=== PATIENT | female | born 2000 | race Caucasian/White ===

== ENCOUNTER 2020-01-27 09:37 | Emergency (ER) | payer OTHER, BC, SELFPAY ==
--- NOTE | ~2020-01-27 | CT_ITS ---
EXAMINATION: CT brain wo con DATE: 01/27/2020 10:11 INDICATION: Head injury, loss of consciousness. Trauma obtained down on patient's head. TECHNIQUE: Computed tomography (CT) of the head was performed without intravenous contrast. The mA wa s adjusted according to patient size. Iterative reconstruction technique was employed. Exam dose: 60 5.33 mGy-cm total exam DLP. COMPARISON: None FINDINGS: No intracranial mass lesion or hemorrhage or cerebrovascular accident is detected. There is no midline shift or mass effect. Ventricular size is within normal range. There is no subdural or ep idural hematoma. The included mastoid air cells and paranasal sinuses are normally developed and aerated. No fracture or bone destruction of the cranial vault. IMPRESSION: Negative Reviewed, dictated and finalized at [facility]. Reviewed, dictated and finalized at location B. CLEANER IMPRESSION: Negative
--- NOTE | ~2020-01-27 | CT_ITS ---
EXAMINATION: CT cervical spine wo con DATE: 01/27/2020 10:11 INDICATION: Head injury. TECHNIQUE: Computed tomography (CT) of the cervical spine was performed without intravenous contrast. Automated exposure control and iterative reconstruction technique were employed. The dose-length pro duct was 122.37 mGy-cm. COMPARISON: None FINDINGS: There is hypolordosis of cervical spine. Vertebral body heights and intervertebral disc hei ghts are normal. C1 ring is ununited posteriorly, a normal variant. At C7-T1, there is mild bilateral facet joint osteoarthritis. No neural foraminal stenosis or central canal stenosis. IMPRESSION: 1. No fracture. Reviewed, dictated and finalized at location A. UTER NUMERICAL CONTROL GRINDER IMPRESSION: 1. No fracture.
[2020-01-27 09:42] VITALS: BP 105/48; PULSE 71; RESP 18; TEMP 37.1; O2SAT 100
[2020-01-27] MEDS: ONDANSETRON HCL ODT 4 MG TABLET PO (10:16)
[2020-01-27] MEDS: KETOROLAC 30 MG/ML VIAL (*BKC) IM (11:25)
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
[2020-01-27 12:08] VITALS: BP 106/76; PULSE 66; RESP 17; O2SAT 100
== END 2020-01-27 12:10 | disposition home or self-care (01) ==
PROVIDERS: Emergency Provider Emergency Medicine
DX: S06.0X9A Concussion with loss of consciousness of unspecified duration, initial encounter (principal); W22.8XXA Striking against or struck by other objects, initial encounter
CPT/HCPCS: 70450; 72125; 96372; 99284; A9270; J1885; L0140

== ENCOUNTER 2020-04-16 20:39 | Emergency (ER) | payer BC, SELFPAY ==
[2020-04-16 20:39] VITALS: BP 119/57; PULSE 72; RESP 20; TEMP 36.1; O2SAT 100
--- NOTE | 2020-04-16 21:05 | ECG_ITS ---
Measurements Intervals [place] Rate: 58 P: 13 CA: 141 QRS: 58 QRSD: 91 T: 35 QT: 419 QTc: 412 Interpretive Statements SINUS BRADYCARDIA BORDERLINE ECG Electronically Signed On 04-17-2020 6:56:36 TILER'S ASSISTANT by Edwin Beasley D.O.
[2020-04-16 21:34] LABS: Basophils Absolute Auto 0.02 K/mm3 (0.00-0.10); Basophils Percent Auto 0.3 % (0.0-1.0); Eosinophils Absolute Auto 0.23 K/mm3 (0.02-0.50); Eosinophils Percent Auto 2.9 % (1.0-6.0); Hematocrit 37.6 % (35.0-49.0); Hemoglobin 12.3 g/dL (12.0-15.0); Immature Granulocyte Absolute 0.02 K/mm3 (0.00-0.00); Immature Granulocyte Percent A 0.3 % (0.0-0.0); Lymphocytes Absolute Auto 1.98 K/mm3 (1.10-4.50); Mean Corpuscular HGB Conc 32.7 g/dL (32.0-36.0); Mean Corpuscular Hemoglobin 29.9 pg (27.0-31.0); Mean Corpuscular Volume 91.3 fL (78.0-102.0); Mean Platelet Volume 9.4 fl (9.2-11.8); Monocytes Absolute Auto 0.62 K/mm3 (0.10-0.90); Monocytes Percent Auto 7.8 % (2.0-11.0); Neutrophils Absolute Auto 5.1 K/mm3 (1.7-7.2); Neutrophils Percent Auto 63.7 % (50.0-70.0); Platelet Count Result 244 K/mm3 (150-420); Red Blood Count 4.12 M/mm3 (4.20-5.40); Red Cell Distribution Width 12.9 % (11.6-14.4); White Blood Count 7.9 K/mm3 (4.8-10.8)
[2020-04-16 21:36] LABS: Add Urine Microscopic? NO; Appearance Urine Clear (Clear); Bilirubin Urine Negative (Negative); Blood Urine Negative (Negative); Color Urine Yellow (Yellow); Glucose Urine UA Negative (Negative); Ketones Urine Negative (Negative); Leukocyte Esterase Ur Negative (Negative); Nitrate Urine Negative (Negative); Protein Urine Negative (Negative); Urobilinogen Urine 0.2 mg/dL (0.2-1.0)
[2020-04-16 21:43] LABS: Alanine Aminotransferase 30 U/L (14-59); Albumin Level 4.2 g/dL (3.4-5.0); Alkaline Phosphatase 42 U/L (46-116); Anion Gap 8 mmol/L (8-16); Aspartate Amino Transferase 25 U/L (15-37); Bilirubin,Total 0.5 mg/dL (0.00-1.00); Blood Urea Nitrogen 18 mg/dL (7-18); Calcium 8.9 mg/dL (8.5-10.1); Carbon Dioxide 28 mmol/L (21-32); Chloride 102 mmol/L (98-108); Estimated Glomerular Filt Rate > 60; Glucose 96 mg/dL (70-99); Osmolality Calculated 287 mOsm/kg (285-295); Potassium 4.1 mmol/L (3.5-5.1); Salicylate 1.1 mg/dL (2.8-20.0); Sodium 138 mmol/L (136-145); Total Protein 7.4 g/dL (6.4-8.2)
[2020-04-16 21:43] LABS: Pregnancy On Board Control Positive; Urine Pregnancy Test Negative
[2020-04-16 21:48] LABS: Amphetamine Screen Urine Negative (Negative); Barbiturate Screen Urine Negative (Negative); Benzodiazepines Screen Urine Negative (Negative); Cannabinoid Screen Urine Positive (Negative); Cocaine Screen Urine Negative (Negative); Methadone Screen Urine Negative (Negative); Opiate Screen Urine Negative (Negative); Phencyclidine Screen Urine Negative (Negative)
[2020-04-16 21:52] LABS: Acetaminophen < 2 ug/mL (10-30)
[2020-04-16 22:13] LABS: Free T4 Free Thyroxine 1.06 ng/dL (0.76-1.46)
[2020-04-16 22:14] LABS: Ethanol < 3 mg/dL (0-6); Thyroid Stimulating Hormone 1.47 uIU/mL (0.36-3.74)
[2020-04-16 22:26] VITALS: BP 128/75; PULSE 74; RESP 20; O2SAT 97
[2020-04-16 23:22] VITALS: BP 128/75; PULSE 74; RESP 20; TEMP 36.1; O2SAT 97
[2020-04-16 23:47] VITALS: BP 127/75; PULSE 75; RESP 20; TEMP 36.9; O2SAT 94
--- NOTE | 2020-04-16 23:47 | PC.NURSE ---
GIRLFRIEND CALLED CHECKING ON PT. PT NOTIFIED.
--- NOTE | 2020-04-16 23:51 | ED.PSYCH ---
HPI - Psych General Chief Complaint: Psychiatric Symptoms Stated Complaint: unknown Time Seen by Provider: 04/16/20 20:50 Source: patient and EMS Mode of arrival: ambulatory Limitations: no limitations History of Present Illness HPI Narrative: Patient comes in after cutting herself. She has multiple superficial lacerations on her thighs and lower legs and on her left arm. She has one laceration on her left arm that is a partial thickness laceration, that is gaped open somewhat. MD complaint: feels depressed Onset (ago): hour(s) Duration: intermittent History of same: Yes Relieving factors: medication and therapy Context: significant life stressor (She says she cheated on her girlfriend and the girlfriend found out about it. ) Treatments prior to arrival: none If self harm: admits thoughts of self harm Details of plan: no plan of suicide, she just wants to hurt herself to let off stress Related Data Home Medications Medication Instructions Recorded Confirmed No Home Medications 04/16/20 04/16/20 Allergies Allergy/AdvReac Type Severity Reaction Status Date / Time No Known Allergies Allergy Verified 01/27/20 09:49 Review of Systems Constitutional: Constitutional: Reports no additional constitutional complaints Eyes: Eyes: Reports no additional eye complaints ENT: Reports system reviewed and no additional complaints, except as documented Cardiovascular: Cardiovascular: Reports no additional cardiovascular complaints Respiratory: Respiratory: Reports no additional respiratory complaints Gastrointestinal: Gastrointestinal: Reports no additional gastrointestinal complaints Genitourinary: Genitourinary: Reports no additional female genitourinary complaints Musculoskeletal: Musculoskeletal: Reports no additional musculoskeletal complaints Integumentary/Breasts: Skin/Breast: Reports system reviewed and no additional complaints, except as docu Neurologic: Reports system reviewed and no additional complaints, except as documented Psychiatric: Psychiatric: Reports no additional psychiatric complaints Endocrine: Endocrine: Reports no additional endocrine complaints Hematologic/Lymphatic: Hematologic/Lymphatic: Reports no additional hematologic/lymphatic complaints Allergic/Immunologic: Allergic/Immunologic: Reports no additional allergic/immunologic complaints FOR[facility]LY [facility], [facility] Past Medical History Medical History (Updated 04/17/20 @ 04:07 by Mir Pierson MD) Bipolar 1 disorder Surgical History Surgical History (Updated 04/17/20 @ 04:07 by Mir Pierson MD) No significant past surgical history Family History Family History (Updated 04/17/20 @ 04:10 by Mir Pierson MD) Mother Anxiety disorder Depression Father Bipolar 1 disorder Social History Social History (Updated 04/17/20 @ 04:11 by Mir Pierson MD) Alcohol intake: never Substance use: current Substance use type: marijuana Living arrangements: with family Gender identity (if verbalized by the patient): Male Sexual Orientation (if Verbalized by the Patient): Lesbian, Boucher, or Homosexual Exam Const: General: healthy appearing, no acute distress and alert Nutritional Appearance: well nourished Orientation/consciousness: patient oriented x3 Limitations: no limitations HENMT: Head: normal to inspection Ears: external ears normal and TM's normal bilaterally General nose exam: Normal external nose present Face and sinus: normal facial exam Mouth: Yes Normal oral and palatal mucosa present Throat: posterior oropharynx normal Eyes: Conjunctivae: conjunctivae normal Neck: Neck: normal visual inspection Chest: Chest palpation & inspection: normal inspection of the chest Resp: Effort & Inspection: normal respiratory effort Auscultation: clear to auscultation bilaterally Cardio: Rate: regular rate Rhythm: regular rhythm GI: GI Palp: Yes Soft to palpation (nontender) Back/Spine/Pelvis: Back: no CVA tenderness Skin:
--- NOTE | 2020-04-17 00:10 | PC.NURSE ---
PT DECLINED WOUND CLEANSING UPON ER ARRIVAL AND PRIOR TO DISCHARGE. STATED I HAVE NO ONE TO PICK ME UP. OFFERED PT TO STAY IN ER TIL RIDE FOUND.PT REFUSED. WARM BLANKET GIVEN. PT DEPARTED FACILITY GETTING INTO GREEN VEHICLE IN PARKING LOT AND DEPARTED FROM FACILITY PROPERTY.
== END 2020-04-17 00:09 | disposition home or self-care (01) ==
PROVIDERS: Emergency Provider Emergency Medicine
DX: F60.3 Borderline personality disorder (principal)
CPT/HCPCS: 36415; 80053; 80307; 81003; 81025; 84439; 84443; 85025; 93005; 99284

== ENCOUNTER 2020-09-29 09:44 | Emergency (ER) | payer BC, SELFPAY ==
[2020-09-29 09:56] VITALS: BP 131/77; PULSE 70; RESP 18; TEMP 36.5; O2SAT 100
[2020-09-29 10:24] LABS: Basophils Percent Auto 0.3 % (0.2-1.2); Eosinophils Absolute Auto 0.2 K/mm3 (0-0.3); Hematocrit 41.3 % (37.0-47.0); Hemoglobin 13.2 g/dL (12.0-15.0); Immature Granulocyte Absolute 0.01 K/mm3 (0.00-0.031); Immature Granulocyte Percent A 0.1 % (0-0.5); Lymphocytes Absolute Auto 1.67 K/mm3 (0.9-3.2); Lymphocytes Percent Auto 22.5 % (18.3-44.2); Mean Corpuscular Hemoglobin 29.4 pg (26-34); Mean Platelet Volume 9.7 fl (7.4-10.4); Monocytes Absolute Auto 0.4 K/mm3 (0.1-0.6); Monocytes Percent Auto 5.5 % (2.6-8.5); Neutrophils Absolute Auto 5.2 K/mm3 (1.3-6.7); Neutrophils Percent Auto 69.6 % (45.5-73.1); Platelet Count Result 220 k/mm3 (150-375); Red Blood Count 4.49 M/mm3 (4.2-5.4); Red Cell Distribution Width 14.5 % (11.5-14.5); White Blood Count 7.4 K/mm3 (4.5-10.0)
[2020-09-29 10:43] LABS: Alanine Aminotransferase 19 U/L (4-35); Albumin Level 4.8 g/dL (3.5-5.1); Alkaline Phosphatase 46 U/L (38-126); Anion Gap 9 mmol/L (8-16); Aspartate Amino Transferase 28 U/L (14-36); Bilirubin,Total 0.2 mg/dL (0.2-1.3); Blood Urea Nitrogen 12 mg/dL (7-17); Calcium 9.5 mg/dL (8.4-10.2); Carbon Dioxide 22 mmol/L (22-30); Chloride 104 mmol/L (98-107); Estimated CRCL calculation 91 ml/min; Estimated Glomerular Filt Rate > 60; Ethanol < 10 mg/dL (<10); Glucose 101 mg/dL (65-110); Potassium 4.2 mmol/L (3.4-5.0); Sodium 135 mmol/L (137-145)
[2020-09-29 10:52] LABS: Add Urine Microscopic? YES; Appearance Urine Clear (Clear); Bacteria Urine Trace /hpf; Bilirubin Urine Negative (Negative); Blood Urine Negative (Negative); Color Urine Yellow (Yellow); Glucose Urine UA Negative (Negative); Ketones Urine Negative (Negative); Leukocyte Esterase Ur Trace LEU/UL (Negative); Mucus Urine Rare /lpf; Nitrate Urine Negative (Negative); Protein Urine Negative (Negative); RBC Urine 0-2 /hpf (0-2); Specific Grav Ur 1.024 (1.001-1.035); Squamous Epithelial Cell Urine Many /hpf (Few); Urobilinogen Urine Negative mg/dL (<2.0); WBC Urine 0-3 /hpf
--- NOTE | 2020-09-29 11:00 | PC.NURSE ---
Assumed care of pt. at this time. Report from DOREEN Ramos
[2020-09-29 11:16] LABS: Amphetamine Screen Urine Negative (Negative); Barbiturate Screen Urine Negative (Negative); Benzodiazepines Screen Urine Negative (Negative); Cannabinoid Screen Urine Positive (Negative); Cocaine Screen Urine Negative (Negative); Methadone Screen Urine Negative (Negative); Opiate Screen Urine Negative (Negative); Phencyclidine Screen Urine Negative (Negative)
--- NOTE | 2020-09-29 11:20 | PC.NURSE ---
This RN into pts room. Talking with pt in regards to self harm, suicide thoughts and family support. Pt states that when she was on her medication she felt like she could handle things better . Pt states that without her medication she will say things like she wants to kill herself, but as soon as she says these things she immediately regrets it. Pt states that last time she tried to harm herself was June 07 of this year. Pt denies any thoughts of harming herself or others within the past month. Pt states she feels as though she has a good support system at home.
--- NOTE | 2020-09-29 11:28 | ED.PSYCH ---
HPI - Psych General Chief Complaint: Psychiatric Symptoms Stated Complaint: Depression Time Seen by Provider: 09/29/20 10:43 Source: patient Mode of arrival: ambulatory Limitations: no limitations History of Present Illness HPI Narrative: This is a 20-year-old female that presents to the emergency department for suicidal ideations. Brought in with the police department. She is having difficulties in her personal relationship with her fianc?. She texted her fianc? and told her she was going to kill herself with a gun. Reports she has history of borderline personality disorder. She has been out of her medication for this for a couple of months. She is still currently seeing a counselor. Reports she has not been able to get the blood work required by her psychiatrist to get more of her medication. Reports she feels very unstable when she is not on her medicine. She has been hospitalized at a psychiatric facility and has previous suicide attempt by cutting. Patient does have her mother around whom she is very close with. She has no plan currently to harm herself. She said she said that to her fiance so she would be hurting as well. Denies visual or auditory hallucinations, or homicidal ideations. Related Data Home Medications Medication Instructions Recorded Confirmed oxcarbazepine 09/29/20 trazodone 09/29/20 Allergies Allergy/AdvReac Type Severity Reaction Status Date / Time No Known Allergies Allergy Verified 01/27/20 09:49 Review of Systems Review of Systems: PSYCHIATRIC: Reports depression. All systems reviewed & are unremarkable except as noted in HPI and below PMFSH Past Medical History Medical History (Updated 09/29/20 @ 15:25 by Ade Borjas PA-C) Bipolar 1 disorder History of borderline personality disorder Surgical History Surgical History (Updated 04/17/20 @ 04:07 by Mir Pierson MD) No significant past surgical history Family History Family History (Updated 04/17/20 @ 04:10 by Mir Pierson MD) Mother Anxiety disorder Depression Father Bipolar 1 disorder Social History Social History (Updated 09/29/20 @ 11:31 by Ade Borjas PA-C) Smoking status: Never smoker Alcohol intake: current Substance use: current Substance use type: marijuana Gender identity (if verbalized by the patient): Male Exam Narrative: GENERAL: Well-appearing, well-nourished, and in no acute distress. HEAD: Normocephalic, atraumatic. EYES: EOMI. EXTREMITIES: Normal range of motion. No edema. SKIN: Warm, dry, no rash. NEURO: No focal deficits. Alert and oriented x3. PSYCH: Depressed mood and affect. Patient appears to have good insight Course Vital Signs Vital signs: Vital Signs Temperature 97.7 F 09/29/20 09:56 Pulse Rate 70 09/29/20 09:56 Respiratory Rate 18 09/29/20 09:56 Blood Pressure 131/77 09/29/20 09:56 Pulse Oximetry 100 09/29/20 09:56 Temperature 98.1 F 09/29/20 12:15 Pulse Rate 66 09/29/20 12:15 Respiratory Rate 22 H 09/29/20 12:15 Blood Pressure 107/65 09/29/20 12:15 Pulse Oximetry 100 09/29/20 12:15 MDM - Psych MDM Narrative Medical decision making narrative: Patient presents to the emergency department for suicidal ideations. She had texted her fianc? saying she was going to shoot herself. Patient herself reports she has no access to a firearm. Reports she sent the text as a way to make her fianc? hurt as she was hurting. She does not have an active plan to harm herself. Patient was evaluated by [facility] and a safety plan is in place. She does have a counselor that she is seeing currently. She does have a good support system. Mother is in the room with her currently who feels good with safety plan and discharge home. She was given warnings to return to the ER Lab Data Attestation: I reviewed the patient's lab results. Result diagrams: 09/29/20 10:17 09/29/20 10:17 Labs: Lab Results
--- NOTE | 2020-09-29 11:59 | PC.NURSE ---
Pt. Is medically cleared
[2020-09-29 12:15] VITALS: BP 107/65; PULSE 66; RESP 22; TEMP 36.7; O2SAT 100
--- NOTE | 2020-09-29 14:38 | PC.NURSE ---
Zoila from [facility] states she feels that a safety plan is appropriate for this patient. ERP made aware
[2020-09-29 15:15] VITALS: BP 112/78; PULSE 71; RESP 20; O2SAT 98
== END 2020-09-29 15:15 | disposition home or self-care (01) ==
PROVIDERS: Emergency Provider Emergency Medicine
DX: R45.851 Suicidal ideations (principal); F31.9 Bipolar disorder, unspecified; F60.3 Borderline personality disorder
CPT/HCPCS: 36415; 80053; 80307; 81001; 81025; 84443; 85025; 99284

== ENCOUNTER 2021-08-10 14:29 | Emergency (ER) | payer BC, SELFPAY ==
--- NOTE | ~2021-08-10 | XR_ITS ---
EXAMINATION: XR shoulder LT min 2V INDICATION: Left shoulder pain TECHNIQUE: Four views of the left shoulder are submitted. COMPARISON: None FINDINGS: Normal alignment. No fracture. Glenohumeral and acromioclavicular joint spaces are normal. Soft tissues are unremarkable. IMPRESSION: 1. No acute osseous abnormality. Reviewed, dictated and finalized at location F.
[2021-08-10 14:37] VITALS: BP 111/57; PULSE 76; RESP 16; TEMP 37.2; O2SAT 100
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
== END 2021-08-10 15:39 | disposition home or self-care (01) ==
PROVIDERS: Emergency Provider Registered Nurse
DX: M25.512 Pain in left shoulder (principal); F17.290 Nicotine dependence, other tobacco product, uncomplicated
CPT/HCPCS: 73030; 99213; G0463

== ENCOUNTER 2023-06-28 18:47 | Emergency (ER) | payer BC, SELFPAY ==
--- NOTE | ~2023-06-28 | XR_ITS ---
EXAM: XR hand LT min 3V DATE: 06/28/2023 19:53 HISTORY: Laceration to 3rd and 4th from knife, left hand . COMPARISON: None available. FINDINGS: Normal mineralization. No fracture or dislocation. No lytic or blastic lesion. Joint space s are maintained. No erosion or periosteal change. Lacerations over the medial aspect of the left thi rd and fourth digits. IMPRESSION: No acute osseous finding in the left hand. Reviewed, dictated and finalized at location K.
[2023-06-28 18:50] VITALS: BP 123/76; PULSE 100; RESP 16; TEMP 36.8; O2SAT 100
--- NOTE | 2023-06-28 19:34 | ED.GENADULT ---
HPI - General Adult General Chief complaint: Wound/Laceration Stated complaint: hand lac Time Seen by Provider: 06/28/23 19:29 History of Present Illness HPI narrative: Patient is a 23-year-old female who presents to the emergency department this evening secondary to left finger laceration. Patient states that she was cutting meat with a knife and accidentally cut the palmar aspect of her 3rd and 4th finger. No active bleeding. Patient states that she rinsed out her multiple times at home and admits that initially wound was bleeding but did eventually stop bleeding. Patient is unsure when her last tetanus shot was and believes that she is not currently up-to-date. She admits to mild numbness and tingling to left 3rd and 4th digits, however, intact digit flexion and extension. Patient denies any additional symptoms or injuries at this time. Related Data Allergies Allergy/AdvReac Type Severity Reaction Status Date / Time No Known Allergies Allergy Verified 06/28/23 19:02 Review of Systems Review of Systems: All systems are reviewed and are negative unless stated otherwise in the HPI. [facility] Past Medical History Medical History Bipolar 1 disorder History of borderline personality disorder Surgical History Surgical History No significant past surgical history Family History Family History Mother Anxiety disorder Depression Father Bipolar 1 disorder Social History Social History Smoking status: Current every day smoker Tobacco type: e-cigarettes/vaping Alcohol intake: current Substance use: current Substance use type: marijuana Living arrangements: with family Gender identity (if verbalized by the patient): Male Sexual Orientation (if Verbalized by the Patient): Lesbian, Boucher, or Homosexual Exam Narrative: General: Alert, awake, afebrile, in no acute distress. Cardiovascular: Regular rate and rhythm, no murmurs, rubs or gallops, no peripheral edema. Respiratory: Clear to auscultation bilaterally, no tachypnea, no wheezing, no rhonchi, no rubs, no respiratory distress. Abdomen: Soft, nontender, nondistended, no rebound, no guarding, no peritoneal signs. Musculoskeletal: 2 cm laceration to the palmar aspect of the left middle finger and 2.5 cm laceration to the distal palmar aspect of the left 4th digit, intact flexion and extension against resistance at the PIP and PIP joints of both 3rd and 4th digits of the left hand, intact sensation, patient is neurovascularly intact. Skin: No rashes or petechia, no signs of infection. Psychiatric: Alert and oriented, normal behavior and judgment for situation. Neurological: Alert and oriented to person, place, and time. Follows all commands. No focal deficits, speech is clear and fluent. Course Vital Signs Vital signs: Vital Signs Temperature 98.2 F 06/28/23 18:50 Pulse Rate 100 06/28/23 18:50 Respiratory Rate 16 06/28/23 18:50 Blood Pressure 123/76 06/28/23 18:50 Pulse Oximetry 100 06/28/23 18:50 Temperature 98.2 F 06/28/23 18:50 Pulse Rate 100 06/28/23 18:50 Respiratory Rate 16 06/28/23 18:50 Blood Pressure 123/76 06/28/23 18:50 Pulse Oximetry 100 06/28/23 18:50 Procedures Laceration Laceration 1: Date: 06/28/23 Time: 20:50 Site: hand Side (If applicable): left Size (cm): 2.5 Description: linear Depth: simple, single layer Local Anesthetic: lidocaine 1% Amount of anesthesia used (mL): 3 Pre-repair: wound explored, irrigated, deep structures intact and wound margins revised ====== Skin Level ====== Skin layer closed with: nylon Size (cm): 4-0 Number of sutures: 5 Technique: simple, inter
[2023-06-28] MEDS: TETANUS,DIPHTHERIA,AC PERTUSSIS ADULT (0.5 ML) BOOSTRIX IM (19:49)
== END 2023-06-28 20:55 | disposition home or self-care (01) ==
PROVIDERS: Emergency Provider Emergency Medicine
DX: S61.213A Laceration without foreign body of left middle finger without damage to nail, initial encounter (principal); S61.215A Laceration without foreign body of left ring finger without damage to nail, initial encounter; W26.0XXA Contact with knife, initial encounter; Z23 Encounter for immunization; F31.9 Bipolar disorder, unspecified; Z72.0 Tobacco use
CPT/HCPCS: 12002; 73130; 90471; 90715; 99283

== ENCOUNTER 2024-10-25 21:23 | Emergency (ER) | payer SELFPAY ==
--- NOTE | ~2024-10-25 | XR_ITS ---
X-rays left forearm Indication: Laceration Comparison: Laceration Technique: 2 views left forearm Findings/Impression: 1. No radiopaque foreign body. 2. No bony abnormality. 3. Soft tissue wound distal ventral soft tissues. Reviewed, dictated and finalized at location R.
--- NOTE | 2024-10-25 21:28 | ED_ITS ---
HPI - Wound/Laceration General Chief Complaint: Wound/Laceration <Jocelynn Herrera APRN - Last Filed: 10/26/24 03:05> Stated Complaint: lac to left arm, self harm <Jocelynn Herrera APRN - Last Filed: 10/26/24 03:05> Time Seen by Provider: 10/26/24 05:05 <Jocelynn Herrera APRN - Last Filed: 10/26/24 03:05> History of Present Illness HPI narrative: Patient is a 24-year-old transgender male who reports to the ER following a self-inflicted laceration to his left forearm. He reports he was feeling down approximately 30 minutes ago so he took a kitchen knife and sliced his arm. Patient reports he is not feeling suicidal or homicidal. He reports he has a history of anxiety, depression, ADHD, and borderline personality disorder. Patient reports he is medicated for these conditions and has felt relatively stable on them until today. He also endorses drinking alcohol prior to his arrival. Patient denies any chest pain, shortness of breath, recent fevers, or other signs/symptoms of illness. <Jocelynn Herrera APRN - Last Filed: 10/26/24 03:05> Related Data Allergies/Adverse Reactions: Allergies Allergy/AdvReac Type Severity Reaction Status Date / Time No Known Allergies Allergy Verified 06/28/23 19:02 <Jocelynn Herrera APRN - Last Filed: 10/26/24 03:05> Review of Systems 2 Review of Systems: All systems reviewed & are unremarkable except as noted in HPI and below <Jocelynn Herrera APRN - Last Filed: 10/26/24 03:05> [facility] Past Medical History Medical History: Medical History History of borderline personality disorder Bipolar 1 disorder <Jocelynn Herrera APRN - Last Filed: 10/26/24 03:05> Surgical History Surgical History: Surgical History No significant past surgical history <Jocelynn Herrera APRN - Last Filed: 10/26/24 03:05> Family History Family History: Family History Mother Anxiety disorder Depression Father Bipolar 1 disorder <Jocelynn Herrera APRN - Last Filed: 10/26/24 03:05> Social History Social History: Social History Smoking status: Current every day smoker Tobacco type: e-cigarettes/vaping Alcohol intake: current Substance use: current Substance use type: marijuana Living arrangements: with family Gender identity (if verbalized by the patient): Male Sexual Orientation (if Verbalized by the Patient): Lesbian, Boucher, or Homosexual <Jocelynn Herrera APRN - Last Filed: 10/26/24 03:05> Exam 2 Narrative: GENERAL: Well appearing, well-nourished, non-toxic, in no acute distress. HEAD: Normocephalic, atraumatic. NECK: Supple. No adenopathy, no masses. RESPIRATORY: Airway patent, respirations nonlabored. Clear to auscultation bilaterally, no rales, rhonchi, wheezing. CARDIOVASCULAR: Regular rate and rhythm without murmurs, rubs, or gallops. Peripheral pulses 2+ and equal bilaterally. ABDOMINAL: Soft, nontender, nondistended, no hepatosplenomegaly. Normoactive BS. MUSCULOSKELETAL: Moves all extremities. Strength/ROM intact without gross deformities. SKIN: Warm, dry, normal color. No rashes. L forearm laceration approximately 2- 1/2 inches horizontal. Bleeding controlled but intermittently oozing. No tendon involvement. NEURO: A&O X3. Speech clear. Cranial nerves II-XII intact. No ataxic movements. PSYCHIATRIC: Tearful. Screaming and arguing with staff intermittently. <Jocelynn Herrera APRN - Last Filed: 10/26/24 03:05> Course RECORDS ASSISTANT/PA Physician Supervision This visit was performed by both a physician and an APC. I performed all aspects of the MDM as documented. <Vishnu Campa MD - Last Filed: 10/26/24 20:28> Vital Signs Vital signs: Vital Signs Temperature 97.1 F L 10/25/24 21:33 Pulse Rate 74 10/25/24 21:33 Respiratory Rate 18 10/25/24 21:33 Blood Pressure 105/57 L 10/25/24 21:33 Pulse Oximetry 97 10/25/24 21:33 Oxygen Delivery Room Air 10/25/24 21:33 Temperature 98 F 10/26/24 20:00 Pulse Rate 76 10/26/24 20:00 Respiratory Rate 16 10/26/24 20:00 Blood Pressure 128/67 10/26/24 20:00 Pulse Oximetry 100 10/26/24 20:00 Oxygen Delivery Room Air 10/25/24 21:33 <Jocelynn Herrera APRN - Last Filed: 10/26/24 03:05> Vital Signs Temperature 97.1 F L 10/25/24 21:33 Pulse Rate 74 10/25/24 21:33 Respiratory Rate 18 10/25/24 21:33 Blood Pressure 105/57 L 10/25/24 21:33 Pulse Oximetry 97 10/25/24 21:33 Oxygen Delivery Room Air 10/25/24 21:33 Temperature 98 F 10/26/24 20:00 Pulse Rate 76 10/26/24 20:00 Respiratory Rate 16 10/26/24 20:00 Blood Pressure 128/67 10/26/24 20:00 Pulse Oximetry 100 10/26/24 20:00 Oxygen Delivery Room Air 10/25/24 21:33 <Vishnu Campa MD - Last Filed: 10/26/24 20:28> Procedures Laceration Laceration 1: Date: 10/26/24 <Jocelynn Herrera APRN - Last Filed: 10/26/24 03:05> Time: 01:02 <Jocelynn Herrera APRN - Last Filed: 10/26/24 03:05> Site: upper extremity <Jocelynn Herrera APRN - Last Filed: 10/26/24 03:05> Side (If applicable): left <Jocelynn Herrera APRN - Last Filed: 10/26/24 03:05> Size (cm): 7 <Jocelynn Herrera APRN - Last Filed: 10/26/24 03:05> Description: linear and irregular <Jocelynn Herrera APRN - Last Filed: 10/26/24 03:05> Depth: simple, single layer <Jocelynn Fabio Herrera WEB SERVICES DEVELOPER - Last Filed: 10/26/24 03:05> Local Anesthetic: lidocaine 1% and with epi <Jocelynn Fabio Herrera WEB SERVICES DEVELOPER - Last Filed: 10/26/24 03:05> Amount of anesthesia used (mL): 7 <Jocelynn LPuja Herrera WEB SERVICES DEVELOPER - Last Filed: 10/26/24 03:05> Pre-repair: wound explored and irrigated extensively <Jocelynn LPuja Herrera, WEB SERVICES DEVELOPER - Last Filed: 10/26/24 03:05> ====== Skin Level ======: Skin layer closed with: nylon <Jocelynn Herrera WEB SERVICES DEVELOPER - Last Filed: 10/26/24 03:05> Size (cm): 3-0 <Jocelynn LPuja Herrera WEB SERVICES DEVELOPER - Last Filed: 10/26/24 03:05> Number of sutures: 7 <Jocelynn Herrera WEB SERVICES DEVELOPER - Last Filed: 10/26/24 03:05> Technique: simple, interrupted <Jocelynn Herrera WEB SERVICES DEVELOPER - Last Filed: 10/26/24 03:05> ====== Subcutaneous Layer ======: Subcutaneous layer closed with: chromic gut <Jocelynn Herrera WEB SERVICES DEVELOPER - Last Filed: 10/26/24 03:05> Size: 3-0 <Jocelynnalexa Herrera WEB SERVICES DEVELOPER - Last Filed: 10/26/24 03:05> ====== Muscle Layer ======: ====== Tendon Layer ======: MDM - Wound/Laceration MDM Narrative Medical decision making narrative: Patient is a 24-year-old transgender male who reports to the ER following a self-inflicted laceration to his left forearm. He reports he was feeling down approximately 30 minutes ago so he took a kitchen knife and sliced his arm. Patient reports he is not feeling suicidal or homicidal. He reports he has a history of anxiety, depression, ADHD, and borderline personality disorder. Patient reports he is medicated for these conditions and has felt relatively stable on them until today. He also endorses drinking alcohol prior to his arrival. Patient denies any chest pain, shortness of breath, recent fevers, or other signs/symptoms of illness. He reports his last tetanus shot was within the past year, as he cut his fingers with a kitchen knife. Labs Ordered: CBC, CMP, UDS, ethanol, TSH, UA Imaging Ordered: Left forearm x-ray Medications Ordered: Haldol 5 mg IM, Benadryl 50 mg IV, Valium 5 mg IV, lidocaine with epinephrine infiltrate Results: Patient's CBC and CMP are unremarkable. His TSH is 2.69. Patient's urinalysis is unremarkable. His UDS is positive for cannabinoids. Patient's initial ethanol level was 188. His 2nd ethanol level drawn several hours later was 83. No other visible injuries besides L forearm laceration. Patient's tetanus status up-to-date. He started becoming agitated, which caused him to flail his arms around. Pt's site started active bleeding so pressure was applied and a new dressing was placed up the laceration. He was given sedative medications. Upon re-examination, pt was very drowsy but became mildly agitated when aroused for laceration repair. Staff able to de-escalate pt with compromise of bringing his fiance back to his room during the procedure. Pt settled in nicely and acted appropriately throughout laceration repair. Lidocaine with epi was used with adequate anesthesia. Laceration was repaired with 7 sutures without complications. Site covered with antibiotic cream and dress with a nonadherent dressing. 0230- Pt medically cleared for psychiatric intake. 0300- Care signed out to Dr. Campa pending psychiatric intake evaluation. < Jocelynn Herrera APRN - Last Filed: 10/26/24 03:05> Lab Data Attestation: I reviewed the patient's lab results. <Jocelynn Herrera APRN - Last Filed: 10/26/24 03:05> Result diagrams: 10/25/24 21:50 10/25/24 21:50 <Jocelynn Herrera APRN - Last Filed: 10/26/24 03:05> Labs: Lab Results 10/25/24 10/25/24 10/26/24 Range/Units 21:50 21:54 01:59 WBC 7.4 (4.5-10.0) K/mm3 RBC 4.33 (4.2-5.4) M/mm3 Hgb 12.3 (12.0-15.0) g/dL Hct 38.2 (37.0-47.0) % MCV 88.2 (80-100) fl MCH 28.4 (26-34) pg MCHC 32.2 (32-36) g/dl RDW 13.3 (11.5-14.5) % Plt Count 237 (150-375) k/mm3 MPV 9.3 (7.4-10.4) fl Immature Gran % (Auto) 0.3 (0-0.5) % Neut % (Auto) 62.3 (45.5-73.1) % Lymph % (Auto) 30.5 (18.3-44.2) % [place] % (Auto) 6.0 (2.6-8.5) % Eos % (Auto) 0.8 (0-4.4) % Baso % (Auto) 0.1 L (0.2-1.2) % Lymph # (Auto) 2.27 (0.9-3.2) K/mm3 [place] # (Auto) 0.5 (0.1-0.6) K/mm3 Eos # (Auto) 0.1 (0-0.3) K/mm3 Baso # (Auto) 0.0 (0.0-0.1) K/mm3 Abs Immat Gran (auto) 0.02 (0.00-0.031) K/mm3 Absolute Neuts (auto) 4.6 (1.3-6.7) K/mm3 Absolute Nucleated RBC 0.000 (0.0-0.012) K/mm3 Nucleated RBC % 0.0 (0.0-0.2) % Sodium 138 (137-145) mmol/L Potassium 3.4 (3.4-5.0) mmol/L Chloride 106 (98-107) mmol/L Carbon Dioxide 23 (22-30) mmol/L Anion Gap 9 (4-12) mmol/L BUN 13 (7-17) mg/dL Creatinine 0.88 (0.7-1.0) mg/dL Estim Creat Clear Calc Not Reportable Estimated GFR > 60 (59 - ) Glucose 103 (65-110) mg/dL Calcium 9.0 (8.4-10.2) mg/dL Total Bilirubin 0.4 (0.2-1.3) mg/dL AST 31 (14-36) U/L ALT 15 (6-35) U/L Alkaline Phosphatase 50 (38-126) U/L Total Protein 7.3 (6.3-8.2) g/dL Albumin 4.5 (3.5-5.1) g/dL TSH 2.690 (0.465-4.680) uIU/mL Urine Color Yellow (Yellow) Urine Appearance Clear (Clear) Urine pH 6.5 (5.0-9.0) Ur Specific [place] 1.004 (1.001-1.035) Urine Protein Negative (Negative) mg/dL Urine Glucose (UA) Negative (Negative) mg/dL Urine Ketones Negative (Negative) mg/dL Ur Blood (Man) Negative (Negative) Urine Nitrate Negative (Negative) Urine Bilirubin Negative (Negative) Urine Urobilinogen 0.2 (<2.0) mg/dL Leukocyte Esterase Rfl Negative (Negative) EASTON/UL POC Urine HCG, Qual Negative (Negative) Urine Opiates Screen Negative (Negative) Urine Methadone Screen Negative (Negative) Ur Barbiturates Screen Negative (Negative) Ur Phencyclidine Scrn Negative (Negative) Ur Amphetamine Screen Negative (Negative) U Benzodiazepines Scrn Negative (Negative) Urine Cocaine Screen Negative (Negative) U Cannabinoids Screen Positive A (Negative) Ethyl Alcohol 188 83 (<10) mg/dL 10/26/24 Range/Units 03:35 WBC (4.5-10.0) K/mm3 RBC (4.2-5.4) M/mm3 Hgb (12.0-15.0) g/dL Hct (37.0-47.0) % MCV (80-100) fl MCH (26-34) pg MCHC (32-36) g/dl RDW (11.5-14.5) % Plt Count (150-375) k/mm3 MPV (7.4-10.4) fl Immature Gran % (Auto) (0-0.5) % Neut % (Auto) (45.5-73.1) % Lymph % (Auto) (18.3-44.2) % [place] % (Auto) (2.6-8.5) % Eos % (Auto) (0-4.4) % Baso % (Auto) (0.2-1.2) % Lymph # (Auto) (0.9-3.2) K/mm3 [place] # (Auto) (0.1-0.6) K/mm3 Eos # (Auto) (0-0.3) K/mm3 Baso # (Auto) (0.0-0.1) K/mm3 Abs Immat Gran (auto) (0.00-0.031) K/mm3 Absolute Neuts (auto) (1.3-6.7) K/mm3 Absolute Nucleated RBC (0.0-0.012) K/mm3 Nucleated RBC % (0.0-0.2) % Sodium (137-145) mmol/L Potassium (3.4-5.0) mmol/L Chloride (98-107) mmol/L Carbon Dioxide (22-30) mmol/L Anion Gap (4-12) mmol/L BUN (7-17) mg/dL Creatinine (0.7-1.0) mg/dL Estim Creat Clear Calc Estimated GFR (59 - ) Glucose (65-110) mg/dL Calcium (8.4-10.2) mg/dL Total Bilirubin (0.2-1.3) mg/dL AST (14-36) U/L ALT (6-35) U/L Alkaline Phosphatase (38-126) U/L Total Protein (6.3-8.2) g/dL Albumin (3.5-5.1) g/dL TSH (0.465-4.680) uIU/mL Urine Color (Yellow) Urine Appearance (Clear) Urine pH (5.0-9.0) Ur Specific [place] (1.001-1.035) Urine Protein (Negative) mg/dL Urine Glucose (UA) (Negative) mg/dL Urine Ketones (Negative) mg/dL Ur Blood (Man) (Negative) Urine Nitrate (Negative) Urine Bilirubin (Negative) Urine Urobilinogen (<2.0) mg/dL Leukocyte Esterase Rfl (Negative) EASTON/UL POC Urine HCG, Qual (Negative) Urine Opiates Screen (Negative) Urine Methadone Screen (Negative) Ur Barbiturates Screen (Negative) Ur Phencyclidine Scrn (Negative) Ur Amphetamine Screen (Negative) U Benzodiazepines Scrn (Negative) Urine Cocaine Screen (Negative) U Cannabinoids Screen (Negative) Ethyl Alcohol 57 (<10) mg/dL <Jocelynn Fabio Herrera, WEB SERVICES DEVELOPER - Last Filed: 10/26/24 03:05> Lab Results 10/25/24 10/25/24 10/26/24 Range/Units 21:50 21:54 01:59 WBC 7.4 (4.5-10.0) K/mm3 RBC 4.33 (4.2-5.4) M/mm3 Hgb 12.3 (12.0-15.0) g/dL Hct 38.2 (37.0-47.0) % MCV 88.2 (80-100) fl MCH 28.4 (26-34) pg MCHC 32.2 (32-36) g/dl RDW 13.3 (11.5-14.5) % Plt Count 237 (150-375) k/mm3 MPV 9.3 (7.4-10.4) fl Immature Gran % (Auto) 0.3 (0-0.5) % Neut % (Auto) 62.3 (45.5-73.1) % Lymph % (Auto) 30.5 (18.3-44.2) % [place] % (Auto) 6.0 (2.6-8.5) % Eos % (Auto) 0.8 (0-4.4) % Baso % (Auto) 0.1 L (0.2-1.2) % Lymph # (Auto) 2.27 (0.9-3.2) K/mm3 [place] # (Auto) 0.5 (0.1-0.6) K/mm3 Eos # (Auto) 0.1 (0-0.3) K/mm3 Baso # (Auto) 0.0 (0.0-0.1) K/mm3 Abs Immat Gran (auto) 0.02 (0.00-0.031) K/mm3 Absolute Neuts (auto) 4.6 (1.3-6.7) K/mm3 Absolute Nucleated RBC 0.000 (0.0-0.012) K/mm3 Nucleated RBC % 0.0 (0.0-0.2) % Sodium 138 (137-145) mmol/L Potassium 3.4 (3.4-5.0) mmol/L Chloride 106 (98-107) mmol/L Carbon Dioxide 23 (22-30) mmol/L Anion Gap 9 (4-12) mmol/L BUN 13 (7-17) mg/dL Creatinine 0.88 (0.7-1.0) mg/dL Estim Creat Clear Calc Not Reportable Estimated GFR > 60 (59 - ) Glucose 103 (65-110) mg/dL Calcium 9.0 (8.4-10.2) mg/dL Total Bilirubin 0.4 (0.2-1.3) mg/dL AST 31 (14-36) U/L ALT 15 (6-35) U/L Alkaline Phosphatase 50 (38-126) U/L Total Protein 7.3 (6.3-8.2) g/dL Albumin 4.5 (3.5-5.1) g/dL TSH 2.690 (0.465-4.680) uIU/mL Urine Color Yellow (Yellow) Urine Appearance Clear (Clear) Urine pH 6.5 (5.0-9.0) Ur Specific [place] 1.004 (1.001-1.035) Urine Protein Negative (Negative) mg/dL Urine Glucose (UA) Negative (Negative) mg/dL Urine Ketones Negative (Negative) mg/dL Ur Blood (Man) Negative (Negative) Urine Nitrate Negative (Negative) Urine Bilirubin Negative (Negative) Urine Urobilinogen 0.2 (<2.0) mg/dL Leukocyte Esterase Rfl Negative (Negative) EASTON/UL POC Urine HCG, Qual Negative (Negative) Urine Opiates Screen Negative (Negative) Urine Methadone Screen Negative (Negative) Ur Barbiturates Screen Negative (Negative) Ur Phencyclidine Scrn Negative (Negative) Ur Amphetamine Screen Negative (Negative) U Benzodiazepines Scrn Negative (Negative) Urine Cocaine Screen Negative (Negative) U Cannabinoids Screen Positive A (Negative) Ethyl Alcohol 188 83 (<10) mg/dL 10/26/24 Range/Units 03:35 WBC (4.5-10.0) K/mm3 RBC (4.2-5.4) M/mm3 Hgb (12.0-15.0) g/dL Hct (37.0-47.0) % MCV (80-100) fl MCH (26-34) pg MCHC (32-36) g/dl RDW (11.5-14.5) % Plt Count (150-375) k/mm3 MPV (7.4-10.4) fl Immature Gran % (Auto) (0-0.5) % Neut % (Auto) (45.5-73.1) % Lymph % (Auto) (18.3-44.2) % [place] % (Auto) (2.6-8.5) % Eos % (Auto) (0-4.4) % Baso % (Auto) (0.2-1.2) % Lymph # (Auto) (0.9-3.2) K/mm3 [place] # (Auto) (0.1-0.6) K/mm3 Eos # (Auto) (0-0.3) K/mm3 Baso # (Auto) (0.0-0.1) K/mm3 Abs Immat Gran (auto) (0.00-0.031) K/mm3 Absolute Neuts (auto) (1.3-6.7) K/mm3 Absolute Nucleated RBC (0.0-0.012) K/mm3 Nucleated RBC % (0.0-0.2) % Sodium (137-145) mmol/L Potassium (3.4-5.0) mmol/L Chloride (98-107) mmol/L Carbon Dioxide (22-30) mmol/L Anion Gap (4-12) mmol/L BUN (7-17) mg/dL Creatinine (0.7-1.0) mg/dL Estim Creat Clear Calc Estimated GFR (59 - ) Glucose (65-110) mg/dL Calcium (8.4-10.2) mg/dL Total Bilirubin (0.2-1.3) mg/dL AST (14-36) U/L ALT (6-35) U/L Alkaline Phosphatase (38-126) U/L Total Protein (6.3-8.2) g/dL Albumin (3.5-5.1) g/dL TSH (0.465-4.680) uIU/mL Urine Color (Yellow) Urine Appearance (Clear) Urine pH (5.0-9.0) Ur Specific [place] (1.001-1.035) Urine Protein (Negative) mg/dL Urine Glucose (UA) (Negative) mg/dL Urine Ketones (Negative) mg/dL Ur Blood (Man) (Negative) Urine Nitrate (Negative) Urine Bilirubin (Negative) Urine Urobilinogen (<2.0) mg/dL Leukocyte Esterase Rfl (Negative) EASTON/UL POC Urine HCG, Qual (Negative) Urine Opiates Screen (Negative) Urine Methadone Screen (Negative) Ur Barbiturates Screen (Negative) Ur Phencyclidine Scrn (Negative) Ur Amphetamine Screen (Negative) U Benzodiazepines Scrn (Negative) Urine Cocaine Screen (Negative) U Cannabinoids Screen (Negative) Ethyl Alcohol 57 (<10) mg/dL <Vishnu Campa MD - Last Filed: 10/26/24 20:28> Medical Decision Making MDM Documentation: Patient signed out to me pending repeat alcohol and psychiatric evaluation. Patient evaluated and recommended inpatient. Involuntary paperwork signed. PAtient remains pending placement. <Vishnu Campa MD - Last Filed: 10/26/24 20:28> Discharge Plan Discharge Clinical Impression: Laceration, Intentional self-harm, Suicidal behavior with attempted self- injury <Jocelynn Herrera APRN - Last Filed: 10/26/24 03:05> Patient Disposition: Still a Patient <Jocelynn Herrera APRN - Last Filed: 10/26/24 03:05> Condition: Stable <Jocelynn Herrera APRN - Last Filed: 10/26/24 03:05> Patient Language: Citizen Of [place] <Jocelynn Herrera APRN - Last Filed: 10/26/24 03:05> Prescriptions: No Action methocarbamol 750 mg tablet 750 mg PO TID Qty: 20 0RF Rx Instructions: can't drive or operate machinery while taking prednisone 10 mg tablet 10 mg PO BID Qty: 10 0RF <CASEY Roca Last Filed: 10/26/24 03:05> Follow-up/Referrals: UNKNOWN,DOCTOR [Primary Care Provider] <CASEY Roca Last Filed: 10/26/24 03:05>
[2024-10-25 21:33] VITALS: BP 105/57; PULSE 74; RESP 18; TEMP 36.2; O2SAT 97
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
[2024-10-25 21:55] LABS: BEDSIDEPREGUCG Negative (Negative)
[2024-10-25 21:59] LABS: Hematocrit 38.2 % (37.0-47.0); Hemoglobin 12.3 g/dL (12.0-15.0); Immature Granulocyte Percent A 0.3 % (0-0.5); Lymphocytes Absolute Auto 2.27 K/mm3 (0.9-3.2); Mean Corpuscular HGB Conc 32.2 g/dl (32-36); Mean Corpuscular Hemoglobin 28.4 pg (26-34); Mean Corpuscular Volume 88.2 fl (80-100); Nucleated Red Blood Cells Absolute Auto 0.000 K/mm3 (0.0-0.012); Nucleated Red Blood Cells Perc 0.0 % (0.0-0.2); Platelet Count Result 237 k/mm3 (150-375); Red Blood Count 4.33 M/mm3 (4.2-5.4); White Blood Count 7.4 K/mm3 (4.5-10.0)
[2024-10-25 22:01] LABS: Add Urine Microscopic? NO; Appearance Urine Clear (Clear); Glucose Urine UA Negative (Negative); Leukocyte Esterase Ur Negative LEU/UL (Negative); Nitrate Urine Negative (Negative); Specific Grav Ur 1.004 (1.001-1.035)
[2024-10-25 22:10] LABS: Alanine Aminotransferase 15 U/L (6-35); Albumin Level 4.5 g/dL (3.5-5.1); Alkaline Phosphatase 50 U/L (38-126); Anion Gap 9 mmol/L (4-12); Aspartate Amino Transferase 31 U/L (14-36); Bilirubin,Total 0.4 mg/dL (0.2-1.3); Blood Urea Nitrogen 13 mg/dL (7-17); Calcium 9.0 mg/dL (8.4-10.2); Carbon Dioxide 23 mmol/L (22-30); Chloride 106 mmol/L (98-107); Estimated Glomerular Filt Rate > 60; Glucose 103 mg/dL (65-110); Potassium 3.4 mmol/L (3.4-5.0); Sodium 138 mmol/L (137-145); Total Protein 7.3 g/dL (6.3-8.2)
[2024-10-25 22:21] LABS: Cannabinoid Screen Urine Positive (Negative)
[2024-10-25 22:41] LABS: Thyroid Stimulating Hormone 2.690 uIU/mL (0.465-4.680)
[2024-10-25] MEDS: HALOPERIDOL LACTATE 5 MG/ML VIAL IM (23:11)
[2024-10-25] MEDS: diazePAM INJ (*CRX) 10 MG/2 ML SYRINGE 5 MG IV PUSH (23:12)
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
--- NOTE | 2024-10-25 23:15 | PC.NURSE ---
Girlfriend of patient removed from room. Patient now laying on bed with a blanket.
[2024-10-25 23:20] VITALS: BP 99/54; PULSE 74; RESP 18; O2SAT 95
--- NOTE | 2024-10-26 03:16 | PC.NURSE ---
crisis notified of pt being clinically sober and medically cleared for evaluation.
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
--- NOTE | 2024-10-26 08:46 | PC.NURSE ---
regular precautionary breakfast tray ordered
--- NOTE | 2024-10-26 09:28 | PC.NURSE ---
Called [place] [facility] to come up and sit with pt.
--- NOTE | 2024-10-26 09:29 | PC.NURSE ---
Pt states he' didn't know that he he stitches to left arm yesterday. States doesn't remember it. Pt states he doesn't remember cutting himself
--- NOTE | 2024-10-26 10:58 | PC.NURSE ---
[place] girlfriend at bedside. Pt calmly resting and drinking coffee
--- NOTE | 2024-10-26 11:14 | PC.NURSE ---
talked with dana
--- NOTE | 2024-10-26 15:04 | PC.NURSE ---
Talked with Sadaf at [facility]
[2024-10-26 17:50] VITALS: BP 132/66; PULSE 80; RESP 20; O2SAT 100
[2024-10-26 20:00] VITALS: BP 128/67; PULSE 76; RESP 16; TEMP 36.6; O2SAT 100
== END 2024-10-26 20:26 ==
PROVIDERS: Registered Nurse; Emergency Provider Student in an Organized Health Care Education/Training Program
DX: S51.812A Laceration without foreign body of left forearm, initial encounter (principal); X78.1XXA Intentional self-harm by knife, initial encounter
CPT/HCPCS: 12032; 36415; 73090; 80053; 80307; 81003; 81025; 82077; 84443; 85025; 96372; 96374; 96375; 99285; J1200; J1630; J3360